=== PATIENT | male | born 1945 | race Caucasian/White ===

== ENCOUNTER 2018-06-26 21:37 | Inpatient (IN) | payer OTHER ==
[~2018-06-26] VITALS: Ht 170.2 cm; Wt 79.4 kg
[2018-06-26 21:45] VITALS: Ht 170.2 cm; Wt 79.4 kg
[2018-06-26] MEDS ORDERED: METOPROLOL SUCC25 M2 PO (22:07)
[2018-06-26] MEDS ORDERED: DONEPEZIL HCL10 MG PO (22:08)
[2018-06-26] MEDS ORDERED: TAMSULOSIN HYD0.4 M1 PO (22:08)
[2018-06-26] MEDS ORDERED: ZES10 PO (22:08)
[2018-06-26] MEDS ORDERED: ROBAXIN500 MG PO (22:09)
[2018-06-26 23:05] LABS: BASOPHIL % 0.2 % (0-2); PLATELET COUNT 169 x10^3mcL (130-400); RED CELL DISTRIBUTION WIDTH 13.2 % (11.5-14.5)
[2018-06-26 23:09] LABS: CALCIUM 8.4 mg/dL (8.5-10.1); CARBON DIOXIDE 28.2 mmol/L (21-32); CHLORIDE SERUM 106 mmol/L (98-107); GLUCOSE SERUM 109 mg/dL (74-106); POTASSIUM SERUM 4.3 mmol/L (3.5-5.1); SODIUM SERUM 144 mmol/L (136-145)
[2018-06-26 23:14] LABS: ALBUMIN 3.7 g/dL (3.4-5.0); ALKALINE PHOSPHATASE 93 U/L (46-116); ALT/SGPT 34 U/L (16-63); AST/SGOT 16 U/L (15-37); BILIRUBIN TOTAL 0.47 mg/dL (0.20-1.00); TOTAL PROTEIN, SERUM 6.6 g/dL (6.4-8.2)
[2018-06-27 00:42] LABS: CHOLESTEROL/HDL RATIO 3.3; MAGNESIUM 2.1 mg/dL (1.8-2.4); PHOSPHOROUS 3.7 mg/dL (2.5-4.9)
[2018-06-27 00:50] LABS: T3 TOTAL 1.34 ng/mL
[2018-06-27 00:52] LABS: FREE T4 1.03 ng/dL (0.76-1.46); FREE THYROXINE INDEX 2.5 ug/dL (1.4-4.5); T4(THYROXINE) 7.4 ug/dL (4.7-13.3)
[2018-06-27 02:09] LABS: microscopic required? YES; urine erythrocyte TRACE (NEGATIVE)
[2018-06-27 02:17] LABS: AMPHETAMINE QUAL UR NONE DETECTED (See below)
[2018-06-27 03:11] VITALS: BP 127/63
[2018-06-27 06:11] VITALS: BP 114/53
[2018-06-27 06:36] LABS: BASOPHIL % 0.3 % (0-2); PLATELET COUNT 175 x10^3mcL (130-400); RED CELL DISTRIBUTION WIDTH 12.3 % (11.5-14.5)
[2018-06-27 06:39] LABS: CALCIUM 7.9 mg/dL (8.5-10.1); CARBON DIOXIDE 26.5 mmol/L (21-32); CHLORIDE SERUM 106 mmol/L (98-107); CREATININE SERUM 0.9 mg/dL (0.7-1.3); GLUCOSE SERUM 104 mg/dL (74-106); PHOSPHOROUS 4.3 mg/dL (2.5-4.9); POTASSIUM SERUM 4.2 mmol/L (3.5-5.1); SODIUM SERUM 141 mmol/L (136-145)
[2018-06-27 09:14] VITALS: BP 136/63
[2018-06-27 13:26] VITALS: BP 111/53
[2018-06-27 16:54] VITALS: BP 101/54
[2018-06-27 20:03] VITALS: BP 113/60
[2018-06-28 05:39] VITALS: BP 140/54
[2018-06-28 06:17] LABS: CALCIUM 8.2 mg/dL (8.5-10.1); CARBON DIOXIDE 29.5 mmol/L (21-32); CHLORIDE SERUM 106 mmol/L (98-107); CREATININE SERUM 0.9 mg/dL (0.7-1.3); GLUCOSE SERUM 99 mg/dL (74-106); PHOSPHOROUS 3.8 mg/dL (2.5-4.9); POTASSIUM SERUM 4.6 mmol/L (3.5-5.1); SODIUM SERUM 139 mmol/L (136-145)
[2018-06-28 07:14] LABS: BASOPHIL % 0.5 % (0-2); PLATELET COUNT 167 x10^3mcL (130-400); RED CELL DISTRIBUTION WIDTH 12.7 % (11.5-14.5)
[2018-06-28 08:35] VITALS: BP 138/75
[2018-06-28 12:55] VITALS: BP 139/76
[2018-06-28 16:15] VITALS: BP 157/64
[2018-06-28 19:46] VITALS: BP 128/56
[2018-06-29 05:37] VITALS: BP 134/68
[2018-06-29 06:59] LABS: BASOPHIL % 0.4 % (0-2); PLATELET COUNT 164 x10^3mcL (130-400)
[2018-06-29 07:03] LABS: CALCIUM 8.3 mg/dL (8.5-10.1); CARBON DIOXIDE 28.7 mmol/L (21-32); CHLORIDE SERUM 107 mmol/L (98-107); GLUCOSE SERUM 91 mg/dL (74-106); POTASSIUM SERUM 4.8 mmol/L (3.5-5.1); SODIUM SERUM 143 mmol/L (136-145)
[2018-06-29 08:00] VITALS: BP 139/70
[2018-06-29] MEDS ORDERED: KEPPRA500 MG PO (12:26)
[2018-06-29 12:59] VITALS: BP 137/73
[2018-06-29 17:27] VITALS: BP 115/64
[2018-06-29 20:53] VITALS: BP 124/79
[2018-06-30 05:24] VITALS: BP 102/64
[2018-06-30 06:44] LABS: BASOPHIL % 0.6 % (0-2); PLATELET COUNT 164 x10^3mcL (130-400); RED CELL DISTRIBUTION WIDTH 12.5 % (11.5-14.5)
[2018-06-30 06:58] LABS: CALCIUM 7.9 mg/dL (8.5-10.1); CARBON DIOXIDE 26.7 mmol/L (21-32); CHLORIDE SERUM 104 mmol/L (98-107); CREATININE SERUM 0.9 mg/dL (0.7-1.3); GLUCOSE SERUM 170 mg/dL (74-106); MAGNESIUM 1.9 mg/dL (1.8-2.4); POTASSIUM SERUM 3.6 mmol/L (3.5-5.1); SODIUM SERUM 138 mmol/L (136-145)
[2018-06-30 09:28] VITALS: BP 121/70
[2018-06-30 12:39] VITALS: BP 121/70
== END 2018-06-30 13:35 | disposition home or self-care (01) | DRG 100 ==
LOC: ED 21:37 → DU 06-27 00:25
PROVIDERS: Emergency Medicine; Internal Medicine
DX: R56.9 Unspecified convulsions (principal); G93.40 Encephalopathy, unspecified; I69.354 Hemiplegia and hemiparesis following cerebral infarction affecting left non-dominant side; G90.8 Other disorders of autonomic nervous system; J44.9 Chronic obstructive pulmonary disease, unspecified; E83.51 Hypocalcemia; E02 Subclinical iodine-deficiency hypothyroidism; K57.10 Diverticulosis of small intestine without perforation or abscess without bleeding; E78.5 Hyperlipidemia, unspecified; G30.9 Alzheimer's disease, unspecified; F02.80 Dementia in other diseases classified elsewhere, unspecified severity, without behavioral disturbance, psychotic disturbance, mood disturbance, and anxiety; I10 Essential (primary) hypertension; N40.0 Benign prostatic hyperplasia without lower urinary tract symptoms; Z68.27 Body mass index [BMI] 27.0-27.9, adult
CPT/HCPCS: 83880; 84439; G0480; J1953; J2270; J7030; Q0092; Q9967